=== PATIENT | male | born 1950 | race Caucasian/White ===

== ENCOUNTER 2016-10-16 07:45 | Inpatient (IN) | payer MEDICARE, OTHER ==
[~2016-10-16] VITALS: Ht 182.9 cm; Wt 90.7 kg
[~2016-10-16 07:45] MED LIST: GABA-534 PO; SERT50TA12 PO; TADA10TA PO
[2016-10-16] MEDS ORDERED: IV NS 0.9% 1,000 ML BAG IV ONE (08:00)
[2016-10-16] MEDS ORDERED: LORAZEPAM INJ 2 MG/ML VIAL IVP ONE (08:00)
[2016-10-16] MEDS ORDERED: IV SET PRIMARY 1 EA INFUS.SET MC ONE (08:08)
[2016-10-16] MEDS ORDERED: LORAZEPAM INJ 2 MG/ML VIAL ONE (08:08)
[2016-10-16] MEDS ORDERED: IV NS 0.9% 1,000 ML ONE (08:08)
[2016-10-16 08:22] LABS: BASOPHILS % (AUTO) 0.2 % (0.0-2.0); DIFF TOTAL % 100 %; EOSINOPHILS # (AUTO) 0.1 /CMM (0.0-0.7); EOSINOPHILS % (AUTO) 0.6 % (0.0-6.0); HEMATOCRIT 56 % (39-51); HEMOGLOBIN 18.3 g/dL (13.5-17.5); LYMPHOCYTES # (AUTO) 2.2 /CMM (0.8-4.8); LYMPHOCYTES % (AUTO) 15.4 % (20.0-44.0); MEAN CORPUSCULAR HEMOGLOBIN 30 PG (26.0-33.0); MEAN CORPUSCULAR HGB CONC 33 g/dl (31.0-36.0); MEAN CORPUSCULAR VOLUME 93 fL (80-96); MONOCYTES # (AUTO) 1.3 /CMM (0.1-1.30); MONOCYTES % (AUTO) 9.5 % (2.0-12.0); NEUTROPHILS # (AUTO) 10.4 /CMM (1.8-8.9); NEUTROPHILS % (AUTO) 74.3 % (43.0-81.0); PLATELET COUNT (AUTO) 245 /CMM (150-450); RED BLOOD CELL COUNT(AUTO) 6.01 MIL/uL (4.5-6.0)
[2016-10-16 08:27] LABS: ANION GAP 33 (5-14); CALCIUM, SERUM 9.1 mg/dL (8.5-10.1); CARBON DIOXIDE 12 mmol/L (21-32); CHLORIDE 102 mmol/L (98-107); CREATININE 1.8 mg/dL (0.6-1.3); GFR 38 mL/min (>60); GLUCOSE 202 mg/dL (74-106); POTASSIUM 3.7 mmol/L (3.5-5.1); SODIUM SERUM 143 mmol/L (136-145); UREA NITROGEN, BLOOD 20 mg/dL (7-18)
[2016-10-16 08:33] LABS: ALANINE AMINOTRANSFERASE 30 U/L (12-78); ALBUMIN 4.3 g/dL (3.4-5.0); ASPARTATE AMINOTRANSFERASE 26 U/L (15-37); BILIRUBIN,DIRECT 0.1 mg/dL (0.0-0.2); BILIRUBIN,TOTAL 0.5 mg/dL (0.2-1.0); INDIRECT BILIRUBIN 0.4 mg/dL (0.0-1.1); TOTAL PROTEIN, SERUM 7.8 g/dL (6.4-8.2)
[2016-10-16] MEDS ORDERED: LEVOFLOXACIN 750 MG /D5W 150ML 150 ML IV ONE ×2 (09:30→09:33)
[2016-10-16] MEDS ORDERED: PIPERACILLIN /TAZOBACTAM 3.375 G in IV D5W 50 ML IV ONE (09:30)
[2016-10-16] MEDS ORDERED: ALBU18HF2 IH (09:31)
[2016-10-16] MEDS ORDERED: CLON0.5T4 PO (09:31)
[2016-10-16] MEDS ORDERED: IV SET PRIMARY PUMP SET 1 EA INFUS.SET MC ONE ×2 (09:33→13:02)
[2016-10-16] MEDS ORDERED: BUDE10.2 IH (09:33)
[2016-10-16 09:43] LABS: BAND % (MANUAL) 3 % (0.0-5.0); LYMPHOCYTES % (MANUAL) 16 % (16-48)
[2016-10-16 09:44] LABS: PLATELET ESTIMATE ADEQUATE
[2016-10-16 10:18] LABS: LACTIC ACID 18.9 mmol/L (0.4-2.0)
[2016-10-16 10:27] LABS: *LACTIC ACID REFLEX FLAG YES
[2016-10-16] MEDS ORDERED: Medication Not On Formulary EA (Budesonide/Formoterol Fumarate (Symbicort 160-4.5 Mcg In IH SCH (11:30)
[2016-10-16] MEDS ORDERED: ALBUTEROL SULFATE 8 GM HFA.AER.AD IH PRN (11:30)
[2016-10-16] MEDS ORDERED: Z GUARD REMEDY 2 OZ OINT TP PRN (12:30)
[2016-10-16] MEDS ORDERED: MAG HYDROX/AL HYDROX/SIMETH 30 ML UDC PO PRN (12:30)
[2016-10-16] MEDS ORDERED: ONDANSETRON HCL/PF 4 MG/2 ML VIAL IVP PRN (12:30)
[2016-10-16] MEDS ORDERED: ZOLPIDEM TARTRATE 5 MG TABLET PO PRN (12:30)
[2016-10-16] MEDS ORDERED: MAGNESIUM HYDROXIDE 30 ML UDC PO PRN (12:30)
[2016-10-16] MEDS ORDERED: HYDROCODONE/APAP 5/325MG 1 EACH TABLET PO PRN (12:30)
[2016-10-16] MEDS: clonazePAM 0.5 MG TABLET PO SCH ×2 (13:02→16:37)
[2016-10-16] MEDS: PANTOPRAZOLE 40 MG TABLET.DR PO SCH (13:03)
[2016-10-16] MEDS: IV NS 0.9% 1,000 ML IV PRN (13:26)
[2016-10-16] MEDS ORDERED: LORAZEPAM INJ 2 MG/ML VIAL IV PRN (14:30)
[2016-10-16] MEDS: FOLIC ACID 1 MG TABLET PO SCH (15:52)
[2016-10-16] MEDS: THIAMINE HCL 100 MG TABLET PO SCH (15:52)
[2016-10-16 16:00] VITALS: BP 126/77
[2016-10-16] MEDS: ACETAMINOPHEN 325 MG TABLET PO PRN (16:37)
[2016-10-16 20:00] VITALS: BP 114/78
[2016-10-17] VITALS (9 sets, daily range): BP systolic 123–134; BP diastolic 78–88
[2016-10-17] MEDS: ACETAMINOPHEN 325 MG TABLET PO PRN (06:49)
[2016-10-17] MEDS: IV NS 0.9% 1,000 ML IV PRN (06:52)
[2016-10-17 06:56] LABS: BASOPHILS % (AUTO) 0.4 % (0.0-2.0); DIFF TOTAL % 100 %; EOSINOPHILS # (AUTO) 0.1 /CMM (0.0-0.7); EOSINOPHILS % (AUTO) 1.3 % (0.0-6.0); HEMATOCRIT 48 % (39-51); HEMOGLOBIN 15.9 g/dL (13.5-17.5); LYMPHOCYTES # (AUTO) 0.9 /CMM (0.8-4.8); LYMPHOCYTES % (AUTO) 12.8 % (20.0-44.0); MEAN CORPUSCULAR HEMOGLOBIN 30 PG (26.0-33.0); MEAN CORPUSCULAR HGB CONC 33 g/dl (31.0-36.0); MEAN CORPUSCULAR VOLUME 91 fL (80-96); MONOCYTES # (AUTO) 0.6 /CMM (0.1-1.30); MONOCYTES % (AUTO) 9.1 % (2.0-12.0); NEUTROPHILS # (AUTO) 5.4 /CMM (1.8-8.9); NEUTROPHILS % (AUTO) 76.4 % (43.0-81.0); PLATELET COUNT (AUTO) 189 /CMM (150-450); RED BLOOD CELL COUNT(AUTO) 5.31 MIL/uL (4.5-6.0); WHITE BLOOD COUNT (AUTO) 7.1 K/uL (4.3-11.0)
[2016-10-17 07:11] LABS: ALBUMIN 3.4 g/dL (3.4-5.0); BILIRUBIN,TOTAL 0.6 mg/dL (0.2-1.0); CALCIUM, SERUM 8.5 mg/dL (8.5-10.1); CREATININE 1.2 mg/dL (0.6-1.3); PHOSPHORUS 3.6 mg/dL (2.5-4.9); POTASSIUM 4.4 mmol/L (3.5-5.1); TOTAL PROTEIN, SERUM 6.2 g/dL (6.4-8.2)
[2016-10-17] MEDS: PANTOPRAZOLE 40 MG TABLET.DR PO SCH (08:09)
[2016-10-17] MEDS: THIAMINE HCL 100 MG TABLET PO SCH (08:09)
[2016-10-17] MEDS: FOLIC ACID 1 MG TABLET PO SCH (08:09)
[2016-10-17] MEDS: clonazePAM 0.5 MG TABLET PO SCH ×3 (08:09→16:24)
[2016-10-17] MEDS ORDERED: LEVOFLOXACIN 750 MG /D5W 150ML 750 MG in PREMIX 1 EA IV SCH (12:00)
[2016-10-17] MEDS ORDERED: SECONDARY IV SET 1 EA INFUS.SET MC ONE (12:04)
[2016-10-18] MEDS: PANTOPRAZOLE 40 MG TABLET.DR PO SCH (07:55)
[2016-10-18 08:00] VITALS: BP 125/84
[2016-10-18] MEDS: clonazePAM 0.5 MG TABLET PO SCH (08:21)
[2016-10-18] MEDS: FOLIC ACID 1 MG TABLET PO SCH (08:21)
[2016-10-18] MEDS: THIAMINE HCL 100 MG TABLET PO SCH (08:21)
[2016-10-18] MEDS: ACETAMINOPHEN 325 MG TABLET PO PRN (09:47)
[2016-10-18] MEDS ORDERED: LEVOFLOXACIN (500MG) 500 MG TABLET PO SCH (12:00)
== END 2016-10-18 12:05 | disposition home or self-care (01) | DRG 896 ==
LOC: ER 07:46 → TELE 11:18 → MED 10-17 11:28
PROVIDERS: ADMIT Internal Medicine; ATTEND Internal Medicine
DX: F13.239 Sedative, hypnotic or anxiolytic dependence with withdrawal, unspecified (principal); N17.0 Acute kidney failure with tubular necrosis; I21.4 Non-ST elevation (NSTEMI) myocardial infarction; J18.9 Pneumonia, unspecified organism; G92 Toxic encephalopathy; E87.2 Acidosis; G40.909 Epilepsy, unspecified, not intractable, without status epilepticus; I25.10 Atherosclerotic heart disease of native coronary artery without angina pectoris; J44.9 Chronic obstructive pulmonary disease, unspecified; I10 Essential (primary) hypertension; Y92.009 Unspecified place in unspecified non-institutional (private) residence as the place of occurrence of the external cause; D64.9 Anemia, unspecified; D72.829 Elevated white blood cell count, unspecified; F31.9 Bipolar disorder, unspecified; M19.90 Unspecified osteoarthritis, unspecified site; Z87.891 Personal history of nicotine dependence; Z85.118 Personal history of other malignant neoplasm of bronchus and lung; R55 Syncope and collapse; T42.6X5A Adverse effect of other antiepileptic and sedative-hypnotic drugs, initial encounter; W19.XXXA Unspecified fall, initial encounter; Y93.9 Activity, unspecified; F10.10 Alcohol abuse, uncomplicated
CPT/HCPCS: 36415; 70450-TC; 71010-TC; 80048-TC; 80053-TC; 80061-TC; 80076-TC; 83605-TC; 83735-TC; 84100-TC; 84484-TC; 85025-TC; 87040-TC; 87081-TC; 93307-TC; 97001-TC; 97003-TC; A4216; A4606; G6040-TC; J1956; J2060; J2543; J7030; J7060; Z7610

== ENCOUNTER 2017-05-19 17:25 | Emergency (ER) | payer MEDICARE, OTHER ==
[~2017-05-19] VITALS: Ht 165.1 cm; Wt 83.9 kg
[~2017-05-19 17:25] MED LIST changes: +ALBU18HF2 IH; +BUDE10.2 IH; +CLON0.5T4 PO; -GABA-534 PO; -SERT50TA12 PO; -TADA10TA PO
--- NOTE | 2017-05-19 17:31 | NUR ---
PT TO ED ROOM 02. BIB RA C/O ALTERED AT [facility]. [id number]. A/A/O X 1. AMBULATORY. CHANGED TO GOWN. CONNECTED TO MONITOR. SEIZURE PRECAUTIONS INITIATED. DR HIDALGO AT BEDSIDE FOR EVAL.HOB ELEVATED. SIDE RAISL UP. R FA G 20 IV POA, CONVERTED TO SALINE LOCK.
[2017-05-19 17:51] LABS: BASOPHILS % (AUTO) 0.5 % (0.0-2.0); EOSINOPHILS # (AUTO) 0.1 /CMM (0.0-0.7); EOSINOPHILS % (AUTO) 2.2 % (0.0-6.0); HEMATOCRIT 47 % (39-51); HEMOGLOBIN 15.9 g/dL (13.5-17.5); LYMPHOCYTES # (AUTO) 1.3 /CMM (0.8-4.8); LYMPHOCYTES % (AUTO) 20.2 % (20.0-44.0); MEAN CORPUSCULAR HEMOGLOBIN 30 PG (26.0-33.0); MEAN CORPUSCULAR HGB CONC 34 g/dl (31.0-36.0); MEAN CORPUSCULAR VOLUME 89 fL (80-96); MONOCYTES # (AUTO) 0.7 /CMM (0.1-1.30); MONOCYTES % (AUTO) 10.7 % (2.0-12.0); NEUTROPHILS # (AUTO) 4.5 /CMM (1.8-8.9); NEUTROPHILS % (AUTO) 66.4 % (43.0-81.0); PLATELET COUNT (AUTO) 195 /CMM (150-450); RDW COEFFICIENT OF VARIATION 11.9 (11.5-15.0); RED BLOOD CELL COUNT(AUTO) 5.29 MIL/uL (4.5-6.0); WHITE BLOOD COUNT (AUTO) 6.6 K/uL (4.3-11.0)
[2017-05-19 18:02] LABS: CARBON DIOXIDE 24 mmol/L (21-32); CHLORIDE 102 mmol/L (98-107); CREATININE 1.1 mg/dL (0.6-1.3); GLUCOSE 103 mg/dL (74-106); POTASSIUM 4.1 mmol/L (3.5-5.1); SODIUM SERUM 138 mmol/L (136-145); UREA NITROGEN, BLOOD 26 mg/dL (7-18)
[2017-05-19] MEDS ORDERED: VALP250C PO (18:04)
[2017-05-19] MEDS ORDERED: DISU250T7 PO (18:04)
[2017-05-19] MEDS ORDERED: NALT50TA PO (18:04)
[2017-05-19] MEDS ORDERED: MONT10TA22 PO (18:04)
[2017-05-19 18:06] LABS: PROTHROMBIN TIME 10.4 SECS (9.5-12.7)
[2017-05-19 18:08] LABS: ALANINE AMINOTRANSFERASE 27 U/L (12-78); ALKALINE PHOSPHATASE 74 U/L (46-116); ASPARTATE AMINOTRANSFERASE 23 U/L (15-37); BILIRUBIN,DIRECT 0.1 mg/dL (0.0-0.2); BILIRUBIN,TOTAL 0.5 mg/dL (0.2-1.0); TOTAL PROTEIN, SERUM 6.3 g/dL (6.4-8.2)
[2017-05-19 18:10] LABS: TROPONIN I < 0.017 ng/mL (0.00-0.056)
--- NOTE | 2017-05-19 18:29 | NUR ---
Patient is resting comfortably in bed with eyes closed. Easily aroused. VSS
--- NOTE | 2017-05-19 19:00 | NUR ---
IV removed. Catheter intact and site benign. Pressure and 4x4 applied to site. No bleeding noted.Patient discharged to home in stable condition. Written and verbal after care instructions given. Patient verbalizes understanding of instruction. ambulatory with a steady gait. NAD. VS WNL.
[2017-05-19 19:06] VITALS: BP 122/80
== END 2017-05-19 19:06 | disposition home or self-care (01) ==
LOC: ER 17:30
DX: R56.9 Unspecified convulsions (principal); R41.82 Altered mental status, unspecified; F10.239 Alcohol dependence with withdrawal, unspecified; I10 Essential (primary) hypertension; R79.1 Abnormal coagulation profile; F17.200 Nicotine dependence, unspecified, uncomplicated; Z85.118 Personal history of other malignant neoplasm of bronchus and lung; Z98.890 Other specified postprocedural states
CPT/HCPCS: 36415; 70450; 71010; 80048; 80076; 82962; 84484; 85025; 85730; 93005; 99285; A4606; Z7610

== ENCOUNTER 2024-05-09 10:19 | Inpatient (IN) | payer MEDICARE, OTHER ==
[~2024-05-09] VITALS: Ht 177.8 cm; Wt 74.8 kg
[~2024-05-09 10:19] MED LIST changes: +DISU250T7 PO; +MONT10TA22 PO; +NALT50TA PO; +VALP250C PO
[2024-05-09] MEDS ORDERED: methylPREDNISolone SOD SUCC 125 MG/2ML VIAL ONE (11:00)
[2024-05-09] MEDS ORDERED: FUROSEMIDE 40 MG/4 ML VIAL ONE (11:00)
[2024-05-09 11:03] LABS: BASOPHILS % (AUTO) 0.3 % (0.0-2.0); EOSINOPHILS # (AUTO) 0.1 K/uL (0.0-0.7); EOSINOPHILS % (AUTO) 0.6 % (0.0-6.0); LYMPHOCYTES # (AUTO) 0.6 K/uL (0.8-4.8); LYMPHOCYTES % (AUTO) 5.3 % (20.0-44.0); MEAN CORPUSCULAR HEMOGLOBIN 31 PG (26.0-33.0); MEAN CORPUSCULAR HGB CONC 33 g/dl (31.0-36.0); MEAN CORPUSCULAR VOLUME 94 fL (80-96); MONOCYTES # (AUTO) 0.6 K/uL (0.1-1.30); NEUTROPHILS # (AUTO) 10.3 K/uL (1.8-8.9); NEUTROPHILS % (AUTO) 88.8 % (43.0-81.0); PLATELET COUNT (AUTO) 173 K/uL (150-450); RED BLOOD CELL COUNT(AUTO) 6.32 MIL/uL (4.5-6.0); RED CELL DISTRIBUTION WIDTH 16.4 % (11.5-15.0); WHITE BLOOD COUNT (AUTO) 11.6 K/uL (4.3-11.0)
[2024-05-09] MEDS: FUROSEMIDE 40 MG/4 ML VIAL IV ONE (11:03)
[2024-05-09] MEDS: methylPREDNISolone SOD SUCC 125 MG/2ML VIAL IV ONE (11:03)
[2024-05-09] MEDS ORDERED: ALBUTEROL FS 2.5 MG/3 ML VIAL.NEB ONE (11:10)
[2024-05-09] MEDS ORDERED: IPRATROPIUM NEB FS 0.5 MG/2.5 ML AMPUL.NEB ONE (11:11)
[2024-05-09 11:12] LABS: CARBON DIOXIDE 27 mmol/L (21-32); CHLORIDE 100 mmol/L (98-107); CREATININE 1.3 mg/dL (0.6-1.3); GLUCOSE 98 mg/dL (74-106); POTASSIUM 4.3 mmol/L (3.5-5.1); SODIUM SERUM 139 mmol/L (136-145); UREA NITROGEN, BLOOD 32 mg/dL (7-18)
[2024-05-09] MEDS: ALBUTEROL FS 2.5 MG/3 ML VIAL.NEB NEB ONE (11:12)
[2024-05-09] MEDS: IPRATROPIUM NEB FS 0.5 MG/2.5 ML AMPUL.NEB NEB ONE (11:12)
[2024-05-09 11:15] LABS: HEMATOCRIT 60 % (39-51); HEMOGLOBIN 19.7 g/dL (13.5-17.5)
[2024-05-09 11:18] LABS: ALANINE AMINOTRANSFERASE 38 U/L (12-78); ALBUMIN 3.3 g/dL (3.4-5.0); ALKALINE PHOSPHATASE 129 U/L (46-116); ASPARTATE AMINOTRANSFERASE 39 U/L (15-37); BILIRUBIN,DIRECT 0.8 mg/dL (0.0-0.2); BILIRUBIN,TOTAL 2.6 mg/dL (0.2-1.0); CALCIUM, SERUM 9.5 mg/dL (8.5-10.1); TOTAL PROTEIN, SERUM 7.4 g/dL (6.4-8.2)
[2024-05-09] MEDS ORDERED: FLUT1BLS6 IH (11:38)
[2024-05-09] MEDS ORDERED: BUME2TAB7 PO (11:38)
[2024-05-09] MEDS: CEFTRIAXONE 1GM BAG (ER ONLY) 50 ML IV ONE (12:21)
[2024-05-09] MEDS: AZITHROMYCIN 500 MG in IV D5W 250 ML IV ONE (12:22)
[2024-05-09 12:32] LABS: LACTIC ACID 2.4 mmol/L (0.4-2.0)
[2024-05-09 13:35] LABS: BASOPHILS % (MANUAL) 0 % (0.0-2.0); EOSINOPHILS % (MANUAL) 0 % (0-4); LYMPHOCYTES % (MANUAL) 3 % (16-48); MONOCYTES % (MANUAL) 4 % (0-11.0); NEUTROPHILS % (MANUAL) 93 (42-76); PLATELET ESTIMATE ADEQUATE
[2024-05-09] MEDS ORDERED: Z GUARD REMEDY 4 OZ OINT TP PRN (14:00)
[2024-05-09] MEDS ORDERED: CEFTRIAXONE 1 G in IV D5W 50 ML IV SCH (14:00)
[2024-05-09] MEDS ORDERED: MAGNESIUM HYDROXIDE 30 ML UDC PO PRN (14:00)
[2024-05-09] MEDS ORDERED: ZOLPIDEM TARTRATE 5 MG TABLET PO PRN (14:00)
[2024-05-09] MEDS ORDERED: ACETAMINOPHEN 325 MG TABLET PO PRN (14:00)
[2024-05-09] MEDS ORDERED: MAG HYDROX/AL HYDROX/SIMETH 30 ML UDC PO PRN (14:00)
[2024-05-09] MEDS ORDERED: ONDANSETRON HCL/PF 4 MG/2 ML VIAL IVP PRN (14:00)
[2024-05-09] MEDS: ENOXAPARIN SODIUM 40 MG/0.4 ML DISP.SYRIN SQ SCH (14:30)
[2024-05-09 16:40] VITALS: BP 122/88; TEMP 97.5; O2SAT 95
[2024-05-09 20:00] VITALS: BP 116/85; TEMP 97.5; O2SAT 95
[2024-05-09 20:17] VITALS: O2SAT 97
[2024-05-09] MEDS: ALBUTEROL FS 2.5 MG/0.5 ML VIAL.NEB NEB SCH (20:17)
[2024-05-09] MEDS: IPRATROPIUM NEB FS 0.5 MG/2.5 ML AMPUL.NEB NEB SCH (20:17)
[2024-05-09 20:32] VITALS: O2SAT 97
[2024-05-09 20:33] VITALS: O2SAT 92
[2024-05-09] MEDS: methylPREDNISolone SOD SUCC 40 MG/ML VIAL IV SCH (22:29)
[2024-05-09] MEDS: IV D5/ 0.9% NACL 1,000 ML IV PRN (22:30)
[2024-05-09 23:56] VITALS: O2SAT 97
[2024-05-10] VITALS (15 sets, daily range): BP systolic 50–152; BP diastolic 34–105; TEMP 97.5–97.9; O2SAT 75–98
[2024-05-10 07:28] LABS: BASOPHILS % (AUTO) 0.1 % (0.0-2.0); HEMATOCRIT 49 % (39-51); HEMOGLOBIN 16.1 g/dL (13.5-17.5); LYMPHOCYTES # (AUTO) 0.3 K/uL (0.8-4.8); LYMPHOCYTES % (AUTO) 4.6 % (20.0-44.0); MEAN CORPUSCULAR HEMOGLOBIN 31 PG (26.0-33.0); MEAN CORPUSCULAR HGB CONC 33 g/dl (31.0-36.0); MEAN CORPUSCULAR VOLUME 94 fL (80-96); MONOCYTES # (AUTO) 0.3 K/uL (0.1-1.30); MONOCYTES % (AUTO) 3.6 % (2.0-12.0); NEUTROPHILS # (AUTO) 6.7 K/uL (1.8-8.9); NEUTROPHILS % (AUTO) 91.7 % (43.0-81.0); PLATELET COUNT (AUTO) 142 K/uL (150-450); RED BLOOD CELL COUNT(AUTO) 5.17 MIL/uL (4.5-6.0); RED CELL DISTRIBUTION WIDTH 15.9 % (11.5-15.0); WHITE BLOOD COUNT (AUTO) 7.3 K/uL (4.3-11.0)
[2024-05-10 07:44] LABS: CALCIUM, SERUM 8.2 mg/dL (8.5-10.1); CARBON DIOXIDE 23 mmol/L (21-32); CHLORIDE 101 mmol/L (98-107); CREATININE 1.3 mg/dL (0.6-1.3); GLUCOSE 316 mg/dL (74-106); PHOSPHORUS 3.2 mg/dL (2.5-4.9); POTASSIUM 3.5 mmol/L (3.5-5.1); SODIUM SERUM 138 mmol/L (136-145); UREA NITROGEN, BLOOD 42 mg/dL (7-18)
[2024-05-10] MEDS ORDERED: FUROSEMIDE 40 MG/4 ML VIAL IV SCH (09:00)
[2024-05-10] MEDS ORDERED: Medication Not On Formulary EA (Fluticasone/Umeclidin/Vilanter (Trelegy Ellipta 100-62.5 IH SCH (09:00)
[2024-05-10] MEDS: SPIRONOLACTONE 25 MG TABLET PO SCH (09:11)
[2024-05-10] MEDS: AZITHROMYCIN 500 MG in IV D5W 250 ML IV SCH (12:35)
[2024-05-10] MEDS: CEFTRIAXONE 1 G in IV D5W 50 ML IV SCH (13:42)
[2024-05-10] MEDS ORDERED: EPINEPHRINE (1:10,000) SYRINGE 1 MG/10 ML DISP.SYRIN IVP ONE (14:07)
[2024-05-10] MEDS ORDERED: IV NS 0.9% 1,000 ML BAG IV PRN (14:30)
[2024-05-10] MEDS ORDERED: NOREPINEPHRINE 32 MG in IV NS 0.9% 218 ML IV PRN (14:30)
[2024-05-10] MEDS ORDERED: PROPOFOL 10MG/ML 50ML 50 ML IV PRN (14:30)
[2024-05-10] MEDS ORDERED: AMIODARONE 150 MG/3 ML VIAL IV ONE (14:39)
== END 2024-05-10 14:39 | DRG 291 ==
LOC: ER 10:33 → TELE1 17:13 → ICU 05-10 14:08
PROVIDERS: ADMIT Nurse Practitioner Acute Care; ATTEND Nurse Practitioner Acute Care
PROC: 5A09357 Assistance with Respiratory Ventilation, Less than 24 Consecutive Hours, Continuous Positive Airway Pressure (ICD-10-PCS; 2024-05-09)
PROC: 0BH18EZ Insertion of Endotracheal Airway into Trachea, Via Natural or Artificial Opening Endoscopic (ICD-10-PCS; principal; 2024-05-10)
PROC: 5A12012 Performance of Cardiac Output, Single, Manual (ICD-10-PCS; 2024-05-10)
DX: I11.0 Hypertensive heart disease with heart failure (principal); I50.31 Acute diastolic (congestive) heart failure; J96.21 Acute and chronic respiratory failure with hypoxia; J15.9 Unspecified bacterial pneumonia; E44.1 Mild protein-calorie malnutrition; E87.20 Acidosis, unspecified; N17.9 Acute kidney failure, unspecified; J44.1 Chronic obstructive pulmonary disease with (acute) exacerbation; J44.0 Chronic obstructive pulmonary disease with (acute) lower respiratory infection; I42.9 Cardiomyopathy, unspecified; E78.5 Hyperlipidemia, unspecified; E88.09 Other disorders of plasma-protein metabolism, not elsewhere classified; Z86.74 Personal history of sudden cardiac arrest; Z20.822 Contact with and (suspected) exposure to COVID-19; Z87.891 Personal history of nicotine dependence; D75.1 Secondary polycythemia; F31.9 Bipolar disorder, unspecified; R74.01 Elevation of levels of liver transaminase levels; Z99.81 Dependence on supplemental oxygen; F10.21 Alcohol dependence, in remission; Z68.23 Body mass index [BMI] 23.0-23.9, adult; I27.20 Pulmonary hypertension, unspecified; I25.10 Atherosclerotic heart disease of native coronary artery without angina pectoris; Z85.118 Personal history of other malignant neoplasm of bronchus and lung; J43.9 Emphysema, unspecified
CPT/HCPCS: 36415; 36600; 71045-TC; 71250-TC; 80048-TC; 80076-TC; 82103; 82803-TC; 82962-TC; 83605-TC; 83735-TC; 83880; 84100-TC; 84484-TC; 85025-TC; 87040-TC; 93307-TC; 93970-TC; 94799-TC; A4223; G0378; J0171; J0282; J0456; J0696; J1650; J1940; J2919; J3490; J7050; J7060